=== PATIENT | male | born 1965 | race Caucasian/White ===

== ENCOUNTER 2019-06-02 14:28 | Emergency (ER) | payer BC ==
[~2019-06-02] VITALS: Ht 175.3 cm; Wt 120.0 kg
[~2019-06-02 14:28] MED LIST: lidocaine 1%/epinephrine 1:100,000 injection 50ml vial ONE
[2019-06-02 14:49] VITALS: BP 157/98
== END 2019-06-02 15:58 | disposition home or self-care (01) ==
LOC: ER 14:29
DX: S01.81XA Laceration without foreign body of other part of head, initial encounter (principal); L76.01 Intraoperative hemorrhage and hematoma of skin and subcutaneous tissue complicating a dermatologic procedure; R51 Headache; I10 Essential (primary) hypertension; W22.8XXA Striking against or struck by other objects, initial encounter; Y93.89 Activity, other specified; Y92.89 Other specified places as the place of occurrence of the external cause; Y99.8 Other external cause status
CPT/HCPCS: 12011; 99283

== ENCOUNTER 2022-11-23 03:26 | Emergency (ER) | payer BC ==
[~2022-11-23] VITALS: Ht 172.7 cm; Wt 127.0 kg
[2022-11-23] MEDS ORDERED: amox tr/potassium clavulanate 875/125mg TAB PO ONE (04:50)
[2022-11-23] MEDS ORDERED: predniSONE 20 mg tablet PO ONE (04:50)
[2022-11-23] MEDS ORDERED: AMOX-117 PO (04:52)
[2022-11-23] MEDS ORDERED: PRED20TA PO (04:52)
[2022-11-23] MEDS ORDERED: ALBU8HFA PO (04:52)
[2022-11-23 05:09] VITALS: BP 130/80
== END 2022-11-23 05:42 | disposition home or self-care (01) ==
LOC: ER 03:27
DX: R05.9 Cough, unspecified (principal); H66.93 Otitis media, unspecified, bilateral; J02.9 Acute pharyngitis, unspecified; I10 Essential (primary) hypertension; Z79.899 Other long term (current) drug therapy
CPT/HCPCS: 99283; J7512

== ENCOUNTER 2022-12-05 10:25 | Emergency (ER) | payer BC ==
[~2022-12-05] VITALS: Ht 170.2 cm; Wt 118.2 kg
[~2022-12-05 10:25] MED LIST changes: +ALBU8HFA PO; +PRED20TA PO; -lidocaine 1%/epinephrine 1:100,000 injection 50ml vial ONE
[2022-12-05 10:29] VITALS: BP 132/87
[2022-12-05] MEDS ORDERED: LEVO750T68 PO (13:40)
[2022-12-05] MEDS ORDERED: levoFLOXACIN 750MG TABLET PO ONE (13:45)
--- NOTE | 2022-12-06 12:00 | NUR ---
Rx levofloxin 75 mg 1 tab PO daily x4 days #4 called to [facility] [address] due to original pharmacy rx sent to is closed today. Approved by Artemio COLES
== END 2022-12-05 14:03 | disposition home or self-care (01) ==
LOC: ER 10:26
DX: H66.92 Otitis media, unspecified, left ear (principal); I10 Essential (primary) hypertension; Z79.899 Other long term (current) drug therapy
CPT/HCPCS: 99283